=== PATIENT | female | born 1980 | race Caucasian/White ===

== ENCOUNTER 2016-04-03 04:25 | Emergency (ER) | payer SELFPAY | END 2016-04-03 05:30 | disposition home or self-care (01) | LOC: D.ER 04:25 | DX: S51.831A Puncture wound without foreign body of right forearm, initial encounter (principal); X58.XXXA Exposure to other specified factors, initial encounter; Y93.89 Activity, other specified; Y92.89 Other specified places as the place of occurrence of the external cause ==